=== PATIENT | male | born 1960 | race Caucasian/White ===

== ENCOUNTER → 2017-08-20 | Outpatient (CLI) | payer OTHER | LOC: CARD 14:50 | PROVIDERS: ATTEND Family Medicine | DX: H81.319 Aural vertigo, unspecified ear (principal) | CPT/HCPCS: 93880 ==

== ENCOUNTER → 2020-08-16 | Outpatient (CLI) | payer SELFPAY | LOC: MRI 14:44 | PROVIDERS: ATTEND Family Medicine | DX: M25.552 Pain in left hip (principal) ==